=== PATIENT | male | born 1995 ===

== ENCOUNTER 2019-03-08 22:01 | Emergency (ER) | payer OTHER ==
[2019-03-08] MEDS ORDERED: Morphine 4 MG/ML VIAL ONE (22:37)
[2019-03-08] MEDS ORDERED: Lidocaine 1% (PF) 30 ML VIAL ONE (22:37)
--- NOTE | 2019-03-08 22:41 | RAD ---
XR Shoulder Rt 3 View STANDARD: 03/08/2019 10:08 PM CLINICAL INDICATION: Right shoulder injury while playing basketball. COMPARISON: None. FINDINGS: Bones: No acute fracture. Glenohumeral joint: There is an anterior inferior dislocation of the right glenohumeral joint. AC joint: Normal alignment. Visualized lung: Clear. Soft tissues: Within normal limits. IMPRESSION: Anterior inferior dislocation of the right glenohumeral joint.
[2019-03-08] MEDS ORDERED: Propofol 500 MG/50 ML VIAL ONE (23:31)
--- NOTE | 2019-03-09 08:52 | RAD ---
RIGHT SHOULDER ONE VIEW: HISTORY: Right shoulder pain following an injury. Follow up reduction. COMPARISON: 03/08/2019 FINDINGS: The previously noted subcoracoid dislocation has been reduced. No acute fracture or dislocation on th is AP post reduction view. POS: [facility]
== END 2019-03-09 00:57 | disposition home or self-care (01) ==
LOC: ERS 22:01
DX: S43.014A Anterior dislocation of right humerus, initial encounter (principal); S43.034A Inferior dislocation of right humerus, initial encounter; X50.9XXA Other and unspecified overexertion or strenuous movements or postures, initial encounter; Y93.67 Activity, basketball
CPT/HCPCS: 23650; 96360; 96372; 99152; J2001; J2270; J2704